=== PATIENT | male | born 1995 | race Caucasian/White ===

== ENCOUNTER 2016-11-23 13:58 | Emergency (ER) | payer OTHER ==
[~2016-11-23] VITALS: Ht 180.3 cm; Wt 82.7 kg
[~2016-11-23 13:58] MED LIST: AZIT250T4 PO; INSU100I13 SUBCUTA079; INSU100I18 SUBCUTA079
[2016-11-23 14:04] VITALS: BP 147/83; PULSE 101; RESP 20; O2SAT 97
--- NOTE | 2016-11-23 15:14 | ED.REPORT ---
HPI-Abd Pain M Under 39 Date of Service Nov 23, 2016 ED Provider: History of Present Illness: abd pain for a week, upset stomach, has had diarrhea for the same amount of time. eating. sees carmine gifford for his diabetes. last seen 6 months ago, appointment the end of this month to see her. no coughing. "galilea went away". returned a few days ago 02/27 pain Nursing Notes Stated Complaint: VOMITING/STOMACH PAIN Chief Complaint: Male Abdominal Pain Nursing Notes Reviewed: Yes Allergies: Coded Allergies: No Known Allergies (Verified Allergy, Unknown, 12/14/15) Scheduled Insulin Glargine (Lantus U100 Solostar Insulin Pen) 100 Unit/1 Ml Insuln.pen 45 MG [id number] HS Insulin Lispro (HumaLOG U100 Insulin Pen) 100 Unit/1 Ml Insuln.pen 1 UNITS [id number] TIDAC 1 unit for every 8carbs General Time Seen by MD: 15:13 Chief Complaint Abdominal pain Hx Obtained From: Patient Sudden in Onset?: No Progression since Onset: Unchanged Location: : Diffuse Past Medical History Past Medical History diabetes dx at 6 years old Reports: Asthma, Diabetes mellitus Past Surgical History hole in atrial septum of heart at 10 years at [facility] Reports: Tonsillectomy Smoking History Current Every Day Smoker (1/2 pack a day for 10 years) Social History Alcohol Use: Denies alcohol use Drug Use: Denies drug use Other Social History: Good social support Occupation lives with girlfriend, work at [employer] 11/23/2016 Ambulatory Status Independent Review of Systems Basic Review of Systems Eyes: Vision NL, No discharge Skin: No bruising, No rash, No itch Psychiatric: Normal thought content Physical Exam Initial Vital Signs Vital Signs (First) Date Time Temp Pulse Resp B/P Pulse Ox O2 Delivery O2 Flow Rate FiO2 11/23/16 14:04 36.8 101 20 147/83 97 Room Air Initial VS: Reviewed, Vital signs normal Head / Eyes: Atraumatic, Normocephalic, PERRL ENT: Mucous membranes moist, Conjunctiva normal, No scleral icterus Neck: Supple, Non-tender, Full range of motion Lymphatic: No lymphadenopathy Extremities: Vascular intact, Neuro intact, No swelling, No tenderness Skin: Warm, Dry, No cyanosis Neurologic: Alert, Oriented, Nonfocal Psychiatric: Mood/affect normal, Behavior normal, Normal thought content General/Constitutional: Awake, Alert, No acute distress, Well appearing, Well developed, Well hydrated, Well nourished, Cooperative, Not toxic appearing Respiratory / Chest: Atraumatic, Breath sounds NL, Breath sounds = bilat, No respiratory distress, No rales, No rhonchi Cardiovascular: Heart rate NL, Regular rhythm, Heart sounds NL, No gallop Abdomen: Atraumatic, Soft, Non-tender, McBurney's non-tender Back: Atraumatic, Inspection NL, Full range of motion, Painless range of motion Interpretation & Diagnostics Lab Results Interpretation Result Diagram: 11/23/16 1505 11/23/16 1505 Test 11/23/16 15:05 11/23/16 15:28 11/23/16 15:49 11/23/16 15:50 White Blood Count 10.8th/mm3 (3.8-10.1) Red Blood Count 5.47mil/mm3 (4.40-5.80) Hemoglobin 17.0g/dL (13.8-17.2) Hematocrit 47.4% (41.0-50.0) Mean Corpuscular Volume 86.7fL (81-100) Mean Corpuscular Hemoglobin 31.1pg (27.0-35.0) Mean Corpuscular Hemoglobin Concent 35.9% (32.0-37.0) Red Cell Distribution Width 12.6% (12.3-15.4) Platelet Count 277bil/L (150-400) Neutrophils (%) (Auto) 75.2% (40-74) Lymphocytes (%) (Auto) 15.1% (14-46) Monocytes (%) (Auto) 6.9% (4-12) Eosinophils (%) (Auto) 2.2% (0-5) Basophils (%) (Auto) 0.3% (0-3) Sodium Level 136mEq/L (134-144) Potassium Level 3.9mEq/L (3.5-5.2) Chloride Level 99mEq/L (97-108) Carbon Dioxide Level 24mmol/L (18-29) Blood Urea Nitrogen 13mg/dL (6-20) Creatinine 0.78mg/dL (0.76-1.27) Estimat Glomerular Filtration Rate 132mL/min (>59) Glucose Level 178mg/dL (60-99) Calcium Level 9.3mg/dL (8.5-10.1) Magnesium Level 2.0mg/dL (1.6-2.6) Total Bilirubin 0.7mg/dL (0.0-1.2) Aspartate Amino Transf (AST/SGOT) 22U/L (0-50) Alanine Aminotransferase (ALT/SGPT) 19U/L (0-44) Alkaline Phosphatase 70U/L (25-150) Total Protein 7.2g/dL (6.4-8.4) Albumin 4.7g/dL (3.4-5.0) Lipase 10U/L (13-60) Hold Urine Received (Received) Urine Color Yellow (YELLOW) Urine Appearance Clear (CLEAR,HAZY) Urine pH 6.5 (5.0-8.0) Urine Specific [place] <1.005 (1.003-1.035) Urine Protein Negativemg/dL (NEG,TRACE) Urine Glucose (UA) Negativemg/dL (NEGATIVE) Urine Ketones Negativemg/dL (NEGATIVE) Urine Occult Blood Negative (NEGATIVE) Urine Nitrite Negative (NEGATIVE) Urine Bilirubin Negative (NEGATIVE) Urine Urobilinogen Normalmg/dL (NORMAL) Urine Leukocyte Esterase Negative (NEGATIVE) Urine RBC 0-2/hpf (0-2) Urine WBC 0-5/hpf (0-5) Urine Epithelial Cells Few/hpf (NONE-MOD) Urine Crystals None seen (NONE SEEN) Urine Bacteria Few/hpf (NONE-FEW) Urine Hyaline Casts None/lpf (NONE) Urine Granular Casts None seen (NONE SEEN) Urine Waxy Casts None seen (NONE SEEN) Urine Red Blood Cell Casts None seen (NONE SEEN) Urine White Blood Cell Casts None seen (NONE SEEN) Urine Mucus None seen (None Seen) Urine Trichomonas None seen (NONE SEEN) Urine Yeast None (NONE SEEN) Urinalysis Comment None Urine Culture Reflexed Not indicated Hold Purple Top Tube Received (Received) Hold Blue Top Tube Received (Received) Hold Red Top Tube Received (Received) Hold Aladdin Top Tube Received (Received) Hold Govea Top Tube Received (Received) Lab Results Interpretation: urine is negative CT Abd / Pelvis Interpretation PROCEDURE: CT KUB ([id number]) INDICATIONS: abd pain TECHNIQUE: Noncontrast 5 mm thick sections acquired from the diaphragms to the symphysis. 5 mm thick coronal and sagittal reformats were then performed. For radiation dose reduction, the following was used: automated exposure control, adjustment of mA and/or kV according to patient size. COMPARISON: [facility], CT, CT ABD PELVIS W CON, 05/21/2015, 17:01. FINDINGS: Image quality: Excellent. Lung bases: Lung bases are clear. Heart size is normal. Urinary system: Both kidneys are normal in size. No kidney stones. No hydronephrosis or perinephric fat stranding. Both ureters appear non-dilated throughout their expected courses. Bladder wall thickness is normal; no calcified bladder stones. Other solid organs: Liver and spleen are normal in size. Gallbladder is within normal limits. Pancreas is normal in contours. No adrenal nodules. Peritoneum and bowel: Unenhanced bowel loops demonstrate normal wall thickness and caliber. No free fluid or air. Normal appendix. Nodes and vessels: No retroperitoneal or mesenteric adenopathy by size criteria. Aorta and inferior vena cava are normal in caliber. Multiple mildly prominent mesenteric lymph nodes are present. Abdominal wall: No ventral hernias. Pelvis: No free pelvic fluid. No inguinal hernias or adenopathy. Bones: No suspicious bony lesions. Apophyseal irregularity of multiple endplates, with multiple Schmorl's nodes is present, most prominent at L5.. No acute vertebral body compression fractures. IMPRESSION: 1. Multiple mildly prominent mesenteric lymph nodes, suggestive of mesenteric adenitis. 2. No evidence of urinary tract calcification, nor obstruction. 3. Normal appendix. 4. Scheuermann's disease. Dictated by: Sandy Solomon M.D. on 11/23/2016 at 16:07 Approved by: Sandy Solomon M.D. on 11/23/2016 at 16:11 Re-Eval/Medical Decision Med Decision/Clinical Course 21 year old male presents to the ER for evualation of diffuse abd pain of a week's duration. Patient is a type 1 diabetis followed by [facility]. Exam is unremarkable as is labs. CT is unremarkable. Exam does not indicate appendicitis as no point tenderness, no evidence of hernia or peritonitis. Patient to follow with primary care. REturn with fever, vomiting not controlled with zofran or any other concerns. discussed with Dr. Finnegan Patient Discharge & Departure Primary Impression: Generalized abdominal pain Disposition: Home Patient Instructions: Acute Abdominal Pain (ED) Additional Instructions: Your labs are normal.. The urine is normal. The CT today shows, like last time in 05/2015 that you have mildly enlarged mesenteric lymph nodes. This may be a chronic condition or it may be be a new finding. If the pain fades in the next week or two, no follow up is indicated. If the pain continues, a visit with GI would be in order. Use hydrocodone 1 at night as needed for severe pain. Use zofran 4 mg ODT in the am and pm for any nausea. Please follow with [facility] for your diabetes. You can also request a provider at [facility] to be your primary care provider. Return with fever, vomiting not controlled with zofran or any other concerns. Referrals: [facility] EDSupervising Provider for APC: James Finnegan MD copies to: [facility] Liss Ponce Nov 23, 2016 15:14
[2016-11-23 15:15] LABS: BASOPHILS % (AUTO) 0.3 % (0-3); EOSINOPHILS % (AUTO) 2.2 % (0-5); MONOCYTES % (AUTO) 6.9 % (4-12); Mean Corpuscular Hemoglobin 31.1 pg (27.0-35.0); Mean Corpuscular Volume 86.7 fL (81-100); NEUTROPHILS % (AUTO) 75.2 % (40-74); Platelet Count 277 bil/L (150-400)
[2016-11-23] MEDS ORDERED: 0.9% Sodium Chloride 1,000 ML IV ONE (15:35)
[2016-11-23] MEDS ORDERED: Ondansetron 2 mg/mL 2 mL Inj IVPUSH ONE (15:35)
[2016-11-23 16:03] LABS: APPEARANCE,URINE CLEAR (CLEAR,HAZY); COLOR,URINE YELLOW (YELLOW); OCCULT BLOOD,URINE NEGATIVE (NEGATIVE); PH,URINE 6.5 (5.0-8.0); UROBILINOGEN,URINE NORMAL (NORMAL)
--- NOTE | 2016-11-23 16:12 | DRSVH ---
PROCEDURE: CT KUB ([id number]) INDICATIONS: abd pain TECHNIQUE: Noncontrast 5 mm thick sections acquired from the diaphragms to the symphysis. 5 mm thick coronal an d sagittal reformats were then performed. For radiation dose reduction, the following was used: aut omated exposure control, adjustment of mA and/or kV according to patient size. COMPARISON: [facility], CT, CT ABD PELVIS W CON, 05/21/2015, 17:01. FINDINGS: Image quality: Excellent. Lung bases: Lung bases are clear. Heart size is normal. Urinary system: Both kidneys are normal in size. No kidney stones. No hydronephrosis or perinephri c fat stranding. Both ureters appear non-dilated throughout their expected courses. Bladder wall th ickness is normal; no calcified bladder stones. Other solid organs: Liver and spleen are normal in size. Gallbladder is within normal limits. Panc reas is normal in contours. No adrenal nodules. Peritoneum and bowel: Unenhanced bowel loops demonstrate normal wall thickness and caliber. No free fluid or air. Normal appendix. Nodes and vessels: No retroperitoneal or mesenteric adenopathy by size criteria. Aorta and inferior vena cava are normal in caliber. Multiple mildly prominent mesenteric lymph nodes are present. Abdominal wall: No ventral hernias. Pelvis: No free pelvic fluid. No inguinal hernias or adenopathy. Bones: No suspicious bony lesions. Apophyseal irregularity of multiple endplates, with multiple Schm orl's nodes is present, most prominent at L5.. No acute vertebral body compression fractures. IMPRESSION: 1. Multiple mildly prominent mesenteric lymph nodes, suggestive of mesenteric adenitis. 2. No evidence of urinary tract calcification, nor obstruction. 3. Normal appendix. 4. Scheuermann's disease. Dictated by: Sandy Solomon M.D. on 11/23/2016 at 16:07 Approved by: Sandy Solomon M.D. on 11/23/2016 at 16:11
[2016-11-23 16:53] VITALS: BP 134/76; PULSE 94; RESP 18; O2SAT 98
== END 2016-11-23 16:55 | disposition home or self-care (01) ==
LOC: SED 13:58
DX: R10.84 Generalized abdominal pain (principal); R19.7 Diarrhea, unspecified; E11.9 Type 2 diabetes mellitus without complications; J45.909 Unspecified asthma, uncomplicated; F17.200 Nicotine dependence, unspecified, uncomplicated; Z79.4 Long term (current) use of insulin
CPT/HCPCS: 36415; 74176; 80053; 81000; 83690; 83735; 85025; 96361; 96374; 96375; 99285; J2405; J7030

== ENCOUNTER 2017-02-02 11:42 | Emergency (ER) | payer OTHER ==
[~2017-02-02] VITALS: Ht 180.3 cm; Wt 84.5 kg
[~2017-02-02 11:42] MED LIST changes: -AZIT250T4 PO
[2017-02-02 11:43] VITALS: BP 141/95; PULSE 80; RESP 15; O2SAT 100
--- NOTE | 2017-02-02 12:12 | DRSVH ---
PROCEDURE: X-RAY LEFT WRIST COMPLETE, MINIMUM THREE VIEWS ([id number]) INDICATIONS: left wrist pain after fall TECHNIQUE: 4 views of the wrist were acquired. COMPARISON: None. FINDINGS: Bones: No fractures or dislocations. No suspicious bony lesions. Scaphoid view: No fracture. Soft tissues: No suspicious soft tissue calcifications. IMPRESSION: No visualized acute fracture or dislocation. However, if clinical concern and/or pain pe rsist, short interval imaging followup in 7-10 days is recommended, as occult injury cannot be defini tively excluded. Dictated by: Aria Caballero M.D. on 02/02/2017 at 12:10 Approved by: Aria Caballero M.D. on 02/02/2017 at 12:11
--- NOTE | 2017-02-02 13:20 | ED.REPORT ---
HPI-Extremity Problem Upper Date of Service February 02, 2017 ED Provider: Dr. Rubio 21 y/o male with hx of DM presents to the ED due to left wrist pain, onset 1.5 hours ago. The pt reports he fell at work and landed on his left hand. Associated sx include tingling and numbness in his left hand. He reports it feels similar to "when your hand is asleep". Nursing Notes Stated Complaint: LEFT WRIST PAIN Chief Complaint: Extremity Trauma Nursing Notes Reviewed: Yes Allergies: Coded Allergies: No Known Allergies (Verified Allergy, Unknown, 02/02/17) Scheduled Insulin Glargine (Lantus U100 Solostar Insulin Pen) 100 Unit/1 Ml Insuln.pen 45 MG [id number] HS Insulin Lispro (HumaLOG U100 Insulin Pen) 100 Unit/1 Ml Insuln.pen 1 UNITS [id number] TIDAC 1 unit for every 8carbs Scheduled PRN Hydrocodone-Acetaminophen 5-325 mg (Hydrocodone-Acetaminophen 5-325 mg) 1 Each Tablet 1 TABLET PO Q6H PRN PRN For Pain General Time Seen by MD: 13:20 Chief Complaint Wrist injury left Hx Obtained From: Patient Arrived By: Walk-in Onset Occurred: 1 - 4 hours ago Symptom Duration: Since onset Caused by: Fall on ground Location: : Wrist left Quality: Painful Severity: Current: Moderate Severity: Maximum: Moderate Recent Healthcare: No recent doctor visit Similar Sx Previous: No Past Medical History Past Medical History diabetes dx at 6 years old Reports: Asthma, Diabetes mellitus Past Surgical History hole in atrial septum of heart at 10 years at [facility] Reports: Tonsillectomy Smoking History Current Every Day Smoker Social History Alcohol Use: Denies alcohol use Drug Use: THC Other Social History: Good social support Occupation lives with girlfriend, work at [employer] 11/23/2016 Ambulatory Status Independent Review of Systems Reports: left hand tingling and numbness. Musculoskeletal: Reports: Joint pain (left wrist), Joint swelling (left wrist) Complete sys rev & neg: except as marked. Physical Exam Initial Vital Signs Vital Signs (First) Date Time Temp Pulse Resp B/P Pulse Ox O2 Delivery O2 Flow Rate FiO2 02/02/17 11:43 36.9 80 15 141/95 100 Room Air Initial VS: Reviewed, Vital signs abnormal Head / Eyes: Atraumatic, Normocephalic, PERRL Neck: Supple, Non-tender, Full range of motion Abdomen / GI: Soft, Non-tender, No guarding, No rebound, No distention Lower Extremities: Vascular intact, Neuro intact, No swelling, No tenderness Skin: Warm, Dry, No cyanosis Neurologic: Alert, Oriented, Nonfocal General/Constitutional: Awake, Alert, Cooperative Neck: Atraumatic, Full range of motion Respiratory / Chest: Atraumatic, Breath sounds NL, Breath sounds = bilat, No respiratory distress, No rales, No rhonchi, No wheezing Cardiovascular: Heart rate NL, Regular rhythm, Heart sounds NL, No gallop, No murmurs, No rubs, Cap refill not delayed Wrist / Hand: No deformity, Neurologic intact, Vascular intact Left Hand: Positive: Swelling present... (Moderate) Good movement of digits. 2 point discrimination intact of left hand. Interpretation & Diagnostics X-Ray Interpretation Xray Interpretation: IMPRESSION: No visualized acute fracture or dislocation. However, if clinical concern and/or pain persist, short interval imaging followup in 7-10 days is recommended, as occult injury cannot be definitively excluded. Dictated by: Aria Caballero M.D. on 02/02/2017 at 12:10 Approved by: Aria Caballero M.D. on 02/02/2017 at 12:11 X-Ray Ordered: Wrist left Re-Eval/Medical Decision Med Decision/Clinical Course The patient has a significant amount of swelling but no fracture. His 2 point discrimination is intact and fluctuates between 6 mm and 7 mm. The patient has a lot of tingling in his hand which is likely related to the swelling. I told him multiple times to elevate his hand when I check on him and his hand would again be down. He had an isolated wrist injury and no other complaints. Re-Evaluation/Progress : Time of Eval: 13:30 Re-Evaluation/Progress Note: Rechecked pt. Discussed imaging results and diagnosis. Informed the pt of the plan to discharge. Pt understands and agrees with plan. F/U instructions and RTER warning given. All questions addressed. Discharge & Departure Impression: Primary Impression: Left wrist sprain Encounter type: initial encounter Qualified Code: S63.502A - Unspecified sprain of left wrist, initial encounter Disposition: Home Discharge Condition All VS Reviewed: Yes Condition: Stable Patient Instructions: Splint Care (ED), Wrist Sprain (ED) Additional Instructions: Your X-ray is normal. You do not have a fracture. Leave the splint on until your symptoms improve and swelling decreases. Elevate your arm as much as possible. Make a follow up appointment for 7-10 days. Call the number below. Take Ibuprofen for pain. Use the narcotic pain medication sparingly. Return to the emergency department in case of increased swelling, worsening numbness or if the numbness does not improve over the next day, or for any new or worsening or concerning symptoms. Referrals: [facility] Scribe Attestation Portions of this note were transcribed by Cody Clement. I, , personally performed the history, physical exam and medical decision-making;I reviewed and confirmed the accuracy of the information in the transcribed note. Signed by Hans Barr. 02/02/17 0415 copies to: [facility] Erna Rubio MD February 02, 2017 13:20 Cody Clement February 02, 2017 13:28
[2017-02-02] MEDS ORDERED: HYDR-4003 PO (13:35)
== END 2017-02-02 13:35 | disposition home or self-care (01) ==
LOC: SED 11:42
DX: S63.502A Unspecified sprain of left wrist, initial encounter (principal); W19.XXXA Unspecified fall, initial encounter; Y93.9 Activity, unspecified; Y92.69 Other specified industrial and construction area as the place of occurrence of the external cause; Y99.0 Civilian activity done for income or pay; E11.9 Type 2 diabetes mellitus without complications; J45.909 Unspecified asthma, uncomplicated; F17.200 Nicotine dependence, unspecified, uncomplicated; Z79.4 Long term (current) use of insulin